=== PATIENT | male | born 1985 | race African-American/Black ===

== ENCOUNTER 2022-10-04 11:40 | Emergency (ER) | payer BC ==
[~2022-10-04] VITALS: Ht 172.7 cm; Wt 127.0 kg
[2022-10-04] MEDS ORDERED: ASPIRIN 81 MG CHEW TAB PO ONE (13:15)
[2022-10-04 14:32] LABS: ANION GAP 13.5 mmol/L (8-16); CALCIUM 9.4 mg/dL (8.4-10.2); CREATININE, SERUM 0.98 mg/dL (0.72-1.25); POTASSIUM 3.5 mmol/L (3.5-5.1)
[2022-10-04 20:51] VITALS: BP 165/90
== END 2022-10-04 20:52 | disposition home or self-care (01) ==
LOC: ER 12:28
DX: R51.9 Headache, unspecified (principal); R03.0 Elevated blood-pressure reading, without diagnosis of hypertension; L92.9 Granulomatous disorder of the skin and subcutaneous tissue, unspecified; H53.8 Other visual disturbances; R09.81 Nasal congestion
CPT/HCPCS: 36415; 80048; 93005; 99284